=== PATIENT | male | born 1960 | race Caucasian/White ===

== ENCOUNTER 2016-04-13 01:13 | Emergency (ER) | payer SELFPAY ==
[~2016-04-13] VITALS: Ht 172.7 cm; Wt 70.2 kg
[~2016-04-13 01:13] MED LIST: Ecotrin PO; NOHOMEMEDS; oxyCODONE PO
[2016-04-13 02:08] LABS: EOSINOPHIL (%) 0.9 % (0-5); EOSINOPHIL COUNT 0.1 K/uL (0-0.3); IMMATURE GRANULOCYTE (%) 0.2 % (0.0-0.7); IMMATURE GRANULOCYTE COUNT 0.3 K/uL; LYMPHOCYTE COUNT 2.5 K/uL (1.0-2.8); MCH 34.3 PG (29.0-34.0); MCV 95.2 FL (86-99); MEAN PLAT.VOLUME 9.5 uM^3 (9.0-12.4); MONOCYTE (%) 5.1 % (3-12); MONOCYTE COUNT 0.6 K/uL (0-0.8); NEUTROPHIL (%) 72.9 % (45-76); NEUTROPHIL COUNT 8.8 K/uL (1.8-6.4); PLATELET COUNT 221 K/uL (156-360); RBC DIS.WIDTH-CV 13.3 % (11.8-14.6); RBC DIS.WIDTH-SD 44.5 % (39-53); WHITE BLOOD COUNT 12.1 K/uL (4.1-10.2)
[2016-04-13 02:16] LABS: CHLORIDE 104 mEq/L (99-109); POTASSIUM 3.6 mEq/L (3.7-5.4); SODIUM 136 mEq/L (136-147)
[2016-04-13 02:18] LABS: GLUCOSE 93 mg/dL (70-99)
[2016-04-13 02:19] LABS: ANION GAP 12 MEQ/L (2-14)
[2016-04-13 02:21] LABS: GFR ESTIMATE (CALCULATED) > 59 mL/min/; SERUM ETHYL ALCOHOL 270 mg/dL
[2016-04-13 02:22] LABS: UREA NITROGEN (BUN) 9 mg/dL (9-23)
[2016-04-13 02:24] LABS: LIPASE 88 U/L (1.0-51.0)
[2016-04-13 04:09] LABS: ADD MEDTOX COMMENT Y; AMPHETAMINE NEGATIVE (500 ng/mL); BARBITURATES NEGATIVE (200 ng/mL); BENZODIAZEPINES NEGATIVE (150 ng/mL); COCAINE NEGATIVE (150 ng/mL); INTERNAL CONTROLS VALID? YES; METHADONE NEGATIVE (200 ng/mL); METHAMPHETAMINE NEGATIVE (500 ng/mL); OPIATES (MORPHINE) PRESUMPTIVE POSITIVE (100 ng/mL); OXYCODONE NEGATIVE (100 ng/mL); PHENCYCLIDINE NEGATIVE (25 ng/mL); PROPOXYPHENE NEGATIVE (300 ng/mL); THC CANNABINOIDS PRESUMPTIVE POSITIVE (50 ng/mL); TRICYCLIC ANTIDEPRESSANTS NEGATIVE (300 ng/mL)
[2016-04-13 04:15] LABS: COLOR STRAW ((YELLOW)); LEUKOCYTES NEGATIVE; NITRITE NEGATIVE; SPECIFIC GRAVITY 1.004 (1.000-1.030)
[2016-04-13 04:16] LABS: ADD MIUA? NO; BILIRUBIN NEGATIVE; BLOOD NEGATIVE; GLUCOSE (STRIP) NEGATIVE; KETONES NEGATIVE; PROTEIN (STRIP) NEGATIVE; UCUL ADDED? NO; UROBILINOGEN 0.2 MG/DL (0.2-1.0)
[2016-04-13 16:11] LABS: TOTAL BILIRUBIN 0.4 mg/dL (0.0-1.0)
[2016-04-13 16:12] LABS: ALKALINE PHOSPHATASE 62 IU/L (3-129)
[2016-04-13 16:14] LABS: DIRECT BILIRUBIN 0.2 mg/dL (0.0-0.3)
[2016-04-13 17:50] VITALS: BP 131/76
== END 2016-04-13 19:05 | disposition designated cancer center or children's hospital (05) ==
LOC: EME 01:13
PROVIDERS: Emergency Medicine
PROC: 3E0234Z Introduction of Serum, Toxoid and Vaccine into Muscle, Percutaneous Approach (ICD-10-PCS; principal; 2016-04-13)
DX: F33.9 Major depressive disorder, recurrent, unspecified (principal); R45.851 Suicidal ideations; F10.129 Alcohol abuse with intoxication, unspecified; S00.81XA Abrasion of other part of head, initial encounter; Y04.8XXA Assault by other bodily force, initial encounter; Y92.009 Unspecified place in unspecified non-institutional (private) residence as the place of occurrence of the external cause; Y07.499 Other family member, perpetrator of maltreatment and neglect; Y90.8 Blood alcohol level of 240 mg/100 ml or more; Z23 Encounter for immunization; Z79.82 Long term (current) use of aspirin; F17.200 Nicotine dependence, unspecified, uncomplicated
CPT/HCPCS: 70450; 71010; 72125; 80048; 80076; 81003; 83690; 84999; 85025; 86850; 86900; 86901; 90837; 99281; 99285; G0480; J2060; J2270; J2405; J7030